=== PATIENT | male | born 1950 | race Caucasian/White ===

== ENCOUNTER 2023-04-05 10:13 | Emergency (ER) | payer MEDICARE, SELFPAY ==
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
[2023-04-05 10:08] VITALS: BP 126/77; PULSE 78; RESP 20; TEMP 36.5; O2SAT 98
[2023-04-05 10:46] VITALS: BP 131/75; PULSE 94; RESP 22; O2SAT 96
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
[2023-04-05 11:30] VITALS: BP 106/79; PULSE 84; RESP 25; O2SAT 95
[2023-04-05 11:42] VITALS: BP 125/87; PULSE 81; RESP 15; O2SAT 96
--- NOTE | 2023-04-05 11:57 | PC.NURSE ---
Report called to Yelena JENKINS at [facility]
== END 2023-04-05 12:31 | disposition short-term general hospital (02) ==
PROVIDERS: Emergency Provider Physician Assistant
DX: M54.2 Cervicalgia (principal); M54.9 Dorsalgia, unspecified; V47.5XXA Car driver injured in collision with fixed or stationary object in traffic accident, initial encounter; Y92.411 Interstate highway as the place of occurrence of the external cause
CPT/HCPCS: 71045; 99285; L0140